=== PATIENT | male | born 1960 | race Asian ===

== ENCOUNTER → 2024-05-01 | Outpatient (CLI) | payer MEDICAID ==
[~2024-05-01] VITALS: Ht 172.7 cm; Wt 93.0 kg
== END | disposition home or self-care (01) ==
LOC: Rad HDHVI 08:15
PROVIDERS: ATTEND Internal Medicine Cardiovascular Disease
DX: I25.10 Atherosclerotic heart disease of native coronary artery without angina pectoris (principal); I49.3 Ventricular premature depolarization; R00.0 Tachycardia, unspecified; R53.83 Other fatigue; I25.2 Old myocardial infarction; E78.5 Hyperlipidemia, unspecified; E11.9 Type 2 diabetes mellitus without complications
CPT/HCPCS: 78452; 93017; 96374; A9500

== ENCOUNTER → 2024-05-03 | Outpatient (CLI) | payer MEDICAID | END | disposition home or self-care (01) | LOC: Rad HDHVI 07:55 | PROVIDERS: ATTEND Internal Medicine Cardiovascular Disease | DX: I25.2 Old myocardial infarction (principal) | CPT/HCPCS: 93880 ==

== ENCOUNTER → 2024-09-11 | Outpatient (CLI) | payer MEDICAID ==
[~2024-09-11] MED LIST: ASPI-543 PO; PIOG1TAB51 PO; POM PO; ROSU20TA14 PO; SEMA3TAB2 PO
[2024-09-11 09:15] VITALS: BP 151/71; PULSE 72; RESP 18; O2SAT 100
[2024-09-11 09:25] VITALS: BP 144/67; PULSE 69; RESP 18; O2SAT 100
--- NOTE | 2024-09-11 14:04 | DVH ---
Chest x-ray Technique: PA and lateral views CLINICAL INDICATION: Shortness of breath FINDINGS: Heart size is normal. Aorta tortuous. No infiltrates or effusions. Degenerative changes in the spine. IMPRESSION: 1. No acute cardiopulmonary pathology
== END | disposition home or self-care (01) ==
LOC: Rad HDHVI 09:00
PROVIDERS: ATTEND Internal Medicine Cardiovascular Disease
DX: Z01.818 Encounter for other preprocedural examination (principal); R06.02 Shortness of breath; R94.39 Abnormal result of other cardiovascular function study; R94.31 Abnormal electrocardiogram [ECG] [EKG]; Q25.46 Tortuous aortic arch; M47.814 Spondylosis without myelopathy or radiculopathy, thoracic region; R07.89 Other chest pain
CPT/HCPCS: 71046; 93005; G0463

== ENCOUNTER 2024-09-14 06:31 | Day surgery (SDC) | payer MEDICAID ==
[2024-09-11 11:44] LABS: Basophils # (auto) 0 10 ^3/uL (0-0.2); Basophils % (auto) 0.3 % (0.0-2.0); Eosinophils # (auto) 0.1 10 ^3/uL (0-0.8); Eosinophils % (auto) 2.7 % (0.0-7.0); Hematocrit 37.6 % (41.0-53.0); Hemoglobin 12.4 g/dL (13.5-17.5); Lymphocytes # (auto) 1.1 10 ^3/uL (0.4-5.4); Lymphocytes % (auto) 35.9 % (10.0-50.0); Mean Corpuscular Hemoglobin 28.3 pg (28.0-32.0); Mean Corpuscular Hgb Conc. 33.1 g/dL (32.0-36.0); Mean Corpuscular Volume 85.4 fL (80.0-100.0); Monocytes # (auto) 0.4 10 ^3/uL (0-1.3); Monocytes % (auto) 15.2 % (0.0-12.0); Neutrophils # (auto) 1.3 10 ^3/uL (1.6-8.6); Neutrophils % (auto) 45.9 % (37.0-80.0); Nucleated Red Blood Cells % 0.2 %; Platelet Count (auto) 168 10^3/uL (140-450); Red Cell Distribution Width 16.3 % (11.8-14.3); White Blood Cell 2.9 10^3/uL (4.4-10.8)
[2024-09-11 11:50] LABS: Chloride 107 mmol/L (98-107); INR 1.05 (0.9-1.15); Partial Thromboplastin Time 27.5 SEC (24.5-34.5); Prothrombin Time 11.1 sec (9.3-11.8); Sodium 137 mmol/L (136-145)
[2024-09-11 11:51] LABS: Anion Gap 2 (5-15); Carbon Dioxide 28 mmol/L (20-31)
[2024-09-11 11:52] LABS: Calcium 9.9 mg/dL (8.7-10.4)
[2024-09-11 11:56] LABS: BUN/Creatinine Ratio 11.3 (10.0-20.0); Blood Urea Nitrogen 15 mg/dL (9-23)
[2024-09-11 11:57] LABS: Glucose 152 mg/dL (74-106); Potassium 5.5 mmol/L (3.5-5.1)
[~2024-09-14] VITALS: Ht 175.3 cm; Wt 79.8 kg
[2024-09-14] VITALS (7 sets, daily range): BP systolic 120–137; BP diastolic 66–73; PULSE 62–68; RESP 12–14; O2SAT 98–99
[~2024-09-14 06:31] MED LIST changes: +CARV6.2551 PO; +MELO15TA29 PO; +SITA1TAB PO
[2024-09-14] MEDS ORDERED: HEPARIN SODIUM (PORCINE) 5000 UNITS/ML 1ML VIAL ONE (09:10)
[2024-09-14] MEDS ORDERED: ANGIOMAX 250 MG VIAL IV ONE (09:10)
[2024-09-14] MEDS ORDERED: VERAPAMIL 2.5MG/ML INJ 2ML VIAL IV ONE (09:10)
[2024-09-14] MEDS ORDERED: fentaNYL CITRATE 100 MCG/2 ML VL ONE (09:10)
[2024-09-14] MEDS ORDERED: SODIUM CHL 0.9% 50 ML ONE (09:11)
[2024-09-14] MEDS ORDERED: LIDOCAINE 2%HCL (LOCAL ANESTH.) INJ 20ML MDV ONE (09:11)
[2024-09-14] MEDS ORDERED: MIDAZOLAM HCL 2MG/2ML 2ml VIAL (1mg/ml) ONE (09:11)
[2024-09-14] MEDS ORDERED: IOHEXOL 350 MG/ML 100ML IJ ONE (09:42)
[2024-09-14] MEDS ORDERED: NITROGLYCERIN 0.4MG/DOSE SPRAY 4.9GM ONE (09:45)
[2024-09-14] MEDS ORDERED: IODIXANOL 320MG/ML 100ML BTL IV ONE (10:06)
[2024-09-14] MEDS ORDERED: CLOPIDOGREL BISULFATE 75 MG TAB ONE (10:19)
--- NOTE | 2024-09-14 11:36 | DVHOP ---
DATE OF SURGERY: 09/14/2024 PROCEDURES PERFORMED: * Selective left and right coronary angiography. * Angioplasty with atherectomy of the first diagonal. * Angioplasty with stent placement of the first diagonal with a 2.5 x 15 mm [place] Starbuck stent of the ostial first diagonal. * Angioplasty of the RCA, which is 100% total occlusion with left to right collaterals. * Ventriculogram. * Right iliac angiography. * Conscious sedation. DESCRIPTION OF PROCEDURE: The patient was prepped and draped in a sterile condition. 1% Xylocaine used to anesthetize the right groin. We attempted to cannulate the right radial artery, but because of extensive spasm, we were not able to cannulate the right radial artery. Then, the right femoral artery was cannulated using a Seldinger technique. A 6-Chilean sheath was in the right femoral artery. Using 6-Chilean JL4 catheter and 6-Chilean JR4 catheter, selective left and right coronary angiographies were performed. Using 6-Chilean pigtail catheter, ventriculogram was done. Following the angiography, a 6-Chilean diagnostic system was exchanged for a 6-Chilean interventional system. Using 6-Chilean JR4 guide catheter, the RCA was cannulated. Multiple wires were attempted, using a ChoICE PT extra support wire, ProVia 6 wire, but this was a subtotal occlusion. The patient had angioplasty with stent placement of the RCA in 1997. It appears essentially completely occluded with heavy calcification throughout with left to left, left to right and right to right collaterals to conus branch collateralization. The patient's left main was patent. Then, a 6-Chilean XB 3.5 catheter was used to cannulate the left main. Using a ChoICE PT extra support wire, the diagonal lesion was then crossed. It was then balloon angioplastied using a 2.0 x 20 mm Euphora balloon. Following the dilatation, a 2.5 x 12 mm shockwave balloon was used to angioplasty the ostium of the diagonal. Following that, a 2.5 x 15 mm [place] Starbuck stent was then deployed across the ostium of the first diagonal at 16 atmospheres. There were no complications. The patient tolerated the procedure well. RESULTS: * Left main patent. * Left anterior descending artery, mild diffuse disease without any flow restrictive lesion. * Circumflex, mild diffuse disease without any flow restrictive lesion. * First diagonal of the LAD had a 99% narrowing, status post thrombectomy with shockwave treatment and angioplasty with stent placement with a 2.5 x 15 mm [place] Starbuck stent with less than 10% residual stenosis. * Right coronary artery was totally occluded. Attempted angioplasty was not successful. The patient has left to left, left to right and right to right collateral circulation. * Left ventricular ejection fraction shows mild global hypokinesis with an estimated EF around 40%-45% with an LVEDP of 15-18 mmHg with no gradient across the aortic valve. Marcos Rudd MD SA/NOAH/JORDAN TID: [id number] RECEIPT: [id number]
--- NOTE | 2024-09-14 12:36 | DVHHP ---
ADMIT DATE: 09/14/2024 HISTORY OF PRESENT ILLNESS: The patient is 64 years old, history of hypertension, hyperlipidemia, history of myocardial infarction in 1997, presented with inferior wall FL. The patient underwent emergent angioplasty with stent placement of the proximal right coronary artery. There is strong family history for coronary artery disease. Grandmother had coronary artery disease. History of tobacco use, but discontinued smoking in 1997. History of diabetes. CURRENT MEDICATIONS: * Insulin. * Coreg. * Aspirin. * Rosuvastatin. He also has symptoms of sciatica. Mild kidney insufficiency, creatinine of 1.33 and the patient's potassium is also elevated at 5.0. He denies any cardiac arrest. No history of CVA. No history of TIA. No seizure disorder. No history of melena, hematochezia, hematemesis, hemoptysis. No hematuria. No history of bladder disease. No history of kidney disease. No history of any inflammatory bowel disease, diverticulitis or any history of irritable bowel syndrome. No lung disease such as COPD, emphysema or asthma. He has hyperlipidemia, however. Denies any history of rheumatologic disorders. PHYSICAL EXAMINATION: VITAL SIGNS: Blood pressure is 148/70, pulse of 70, O2 saturation 98% on room air. HEENT: Pupils are reactive. Funduscopic exam is benign. Sclerae anicteric. Oral mucosa moist. Posterior pharynx without any exudate. No JVD appreciated. Carotid pulses are 2+ symmetrical, normal upstroke and contour. No cervical adenopathy, no supraclavicular adenopathy. PULMONARY: Clear to auscultation. CARDIOVASCULAR: Regular rate, without S3, without S4. PMI is not displaced. ABDOMEN: Soft, nontender, normal bowel sounds. SKIN: Unremarkable. EXTREMITIES: 2+ pulses. NEUROLOGIC: The patient is intact. DIAGNOSTIC DATA: EKG does not show any acute changes. ASSESSMENT AND PLAN: Thus, the patient with inferior wall myocardial infarction in the past and angioplasty, stent placement, now with diminished left ventricular ejection fraction and inferior wall reversibility and because of above presentation, the patient is to undergo coronary angiography. Further recommendations after the angiogram. Marcos Rudd MD SA/NOAH TID: [id number] RECEIPT: [id number]
--- NOTE | 2024-09-14 12:37 | DVHDS ---
DATE OF DISCHARGE: 09/14/2024 DISCHARGE DIAGNOSES: The patient underwent angioplasty with stent placement of the first diagonal with thrombectomy as well, occluded RCA with bridging collaterals from the left as well as from the right. The patient at this time, clinically stable. May be discharged home on dual antiplatelet therapy. Follow up with me in 1 week. Stable at the time of discharge. DISPOSITION: Home. ACTIVITY: As instructed. DIET: Will be 2 gram sodium diet. The patient will be on dual antiplatelet therapy as stated above. Plavix 75 mg p.o. daily, with aspirin. Marcos Rudd MD SA/NOAH TID: [id number] RECEIPT: [id number]
[2024-09-14] MEDS ORDERED: CLOP75TA70 PO (13:34)
== END 2024-09-14 13:05 | disposition home or self-care (01) ==
LOC: CATH 06:31
PROVIDERS: ATTEND Internal Medicine Cardiovascular Disease
DX: I25.10 Atherosclerotic heart disease of native coronary artery without angina pectoris (principal); R06.02 Shortness of breath; I25.84 Coronary atherosclerosis due to calcified coronary lesion; I25.82 Chronic total occlusion of coronary artery; E11.9 Type 2 diabetes mellitus without complications; E78.5 Hyperlipidemia, unspecified; I10 Essential (primary) hypertension; I25.2 Old myocardial infarction; Z82.49 Family history of ischemic heart disease and other diseases of the circulatory system; Z87.891 Personal history of nicotine dependence; Z95.5 Presence of coronary angioplasty implant and graft
CPT/HCPCS: 36415; 80048; 84132; 85025; 85610; 85730; 92972; 93458; C1725; C1760; C1761; C1769; C1874; C1887; C1894; C9600; J0583; J1644; J2250; J3010; J7030; Q9967; 92920; 99152; 99153

== ENCOUNTER 2024-09-19 14:05 | Inpatient (IN) | payer MEDICAID ==
[~2024-09-19] VITALS: Ht 175.3 cm; Wt 83.9 kg
[~2024-09-19 14:05] MED LIST changes: +CLOP75TA70 PO
--- NOTE | 2024-09-19 14:18 | ED.PDOC ---
General HPI Comments 64 year old male MIKE presents to the ED with chief complaint of testicular swelling. Patient's son reports patient had an angiogram performed through the right groin on and had a stent placed by Dr. Rodríguez. Son relays that the patient had no issues until this morning when he began to notice increasing swelling, pain, and bluish discoloration to his testicles. EMS notes that they provided the patient 100mcg of Fentanyl for pain relief. Patient denies any dysuria, hematuria, fever, chills, or abdominal pain. Time Seen by MD: 14:14 Reviewed notes: Nurses Notes, Payroll Accounting Clerk Notes, Medications, Allergies Allergies: Coded Allergies: NO KNOWN ALLERGIES (Unverified , 05/01/24) Home Meds Reported Medications Aspirin (Aspir-Low) 81 Mg Tab, 81 MG PO DAILY, MG 09/11/24 Patients Own Medication (PATIENTS OWN MEDICATION) ., PO DAILY for JANUMENT/ 50/500MG PTS OWN MED-OBTAIN FROM PT AND SEND TO RX DRUG: FREQ: RX# EXP: DATE DISP: TECH: H: 09/11/24 Semaglutide (Rybelsus) 3 Mg Tab, 3 MG PO DAILY for DIABETES, TAB 09/11/24 Rosuvastatin Calcium (Crestor) 20 Mg Tab, 1 TAB PO DAILY, #30 TAB 5 Refills 09/11/24 Pioglitazone Hydrochloride (PIOGLITAZONE HCL) 45 Mg Tab, 45 MG PO DAILY for DIABETES, TAB 09/11/24 Information Source: Patient, Relative (Son), Emergency Med Personnel Mode of Arrival: EMS Severity: Moderate Timing: Hours Duration: Since onset Prehospital treatment: Pain Meds (100mcg of Fentanyl) Onset: Spontaneous History of: Recent post-op (Angiogram) Location: None Location male: R Scrotum, L Scrotum Penile discharge: None Modifying factors: None Past Medical History PAST MEDICAL HISTORY: DM, High Lipids, HTN, MS Surgical History: PTCA Surgical History (Other): Angiogram through Rt groin Family History Family History: Reviewed,noncontributory to illness, Family hx of DM, Family hx of Cancer, Family hx of heart campos Social History Smoker: Quit Greater Than 1 Year, Cigarettes Alcohol: Denies ETOH Use Drugs: Denies Drug Use Lives In: Home Constitutional: denies: chills, diaphoresis, fatigue, fever, malaise, sweats, weakness, others EENTM: denies: blurred vision, double vision, ear bleeding, ear discharge, ear drainage, ear pain, ear ringing, eye pain, eye redness, hearing loss, mouth pain, mouth swelling, nasal discharge, nose bleeding, nose congestion, nose pain, photophobia, tearing, throat pain, throat swelling, voice changes, others Respiratory: denies: cough, hemoptysis, orthopnea, SOB at rest, shortness of breath, SOB with excertion, stridor, wheezing, others Cardiovascular: denies: chest pain, dizzy spells, diaphoresis, Dyspnea on exertion, edema, irregular heart beat, left arm pain, lightheadedness, palpitations, PND, syncope, others Gastrointestinal: denies: abdomen distended, abdominal pain, blood streaked bowels, constipated, diarrhea, dysphagia, difficulty swallowing, hematemesis, melena, nausea, poor appetite, poor fluid intake, rectal bleeding, rectal pain, vomiting, others Genitourinary: reports: testicle pain, testicle swelling, others (Testicle discoloration); denies: burning, dysuria, flank pain, frequency, hematuria, incontinence, penile discharge, penile sore, pain, urgency Neurological: denies: dizziness, fainting, headache, left sided numbness, left sided weakness, numbness, paresthesia, pre-existing deficit, right sided numbness, right sided weakness, seizure, speech problems, tingling, tremors, weakness, others Musculoskeletal: denies: back pain, gout, joint pain, joint swelling, muscle pain, muscle stiffness, neck pain, others Integumetry: denies: bruises, change in color, change in hair/nails, dryness, laceration, lesions, lumps, rash, wounds, others Allergic/Immunocompromised: denies: Difficulty Healing, Frequent Infections, Hives, Itching, others Hematologic/Lymphatic: denies: anemia, blood clots, easy bleeding, easy bruising, swollen glands, others Endocrine: denies: excessive hunger, excessive sweating, excessive thirst, excessive urination, flushing, intolerance to cold, intolerance to heat, unexplained weight gain, unexplained weight loss, others Psychiatric: denies: anxiety, bipolar disorder, depression, hopeless, panic disorder, schizophrenia, sleepless, suicidal, others All Other Systems: Reviewed and Negative Physical Exam General Appearance: Moderate Distress HEENT: Normal ENT Inspection, Pharynx Normal, TMs Normal Neck: Full Range of Motion, Non-Tender, Normal, Normal Inspection Respiratory: Chest Non-Tender, Lungs Clear, No Accessory Muscle Use, No Respiratory Distress, Normal Breath Sounds Cardiovascular: No Edema, No JVD, No Murmur, No Gallop, Normal Peripheral Pulses, Regular Rate/Rhythm Breast Exam: Deferred Gastrointestinal: No Organomegaly, Non Tender, No Pulsatile Mass, Normal Bowel Sounds, Soft Genitalia: Other (Severely swollen scrotal area as well as the right inguinal area. There seems to be a hematoma) Pelvic: Deferred Rectal: Deferred Extremities: No calf tenderness, Normal capillary refill, Normal inspection, Normal range of motion, Non-tender, No pedal edema Musculoskeletal : Apperance: Normal Neurologic: Alert, kitchen porter II-XII nml as Tested, No Motor Deficits, Normal Affect, Normal Mood, No Sensory Deficits Cerebellar Function: Normal Reflexes: Normal Skin: Dry, Normal Color, Warm Lymphatic: No Adenopathy Was a procedure done? Was a procedure done?: No Differential Diagnosis Kidney stone (Female): Strain, Other (Hematoma) X-Ray, Labs, Meds, VS Vital Signs Date Time Temp Pulse Resp B/P (MAP) Pulse Ox O2 Delivery O2 Flow Rate FiO2 09/19/24 14:27 98.8 80 18 166/89 (114) 99 Lab Test 09/19/24 14:36 Range/Units White Blood Count 5.7 4.4-10.8 10^3/uL Red Blood Count 2.86 L 4.5-5.90 10^6/uL Hemoglobin 8.0 L 13.5-17.5 g/dL Hematocrit 24.6 L 41.0-53.0 % Mean Corpuscular Volume 86.0 80.0-100.0 fL Mean Corpuscular Hemoglobin 28.1 28.0-32.0 pg Mean Corpuscular Hemoglobin Concent 32.6 32.0-36.0 g/dL Red Cell Distribution Width 16.1 H 11.8-14.3 % Platelet Count 186 140-450 10^3/uL Mean Platelet Volume 7.5 6.9-10.8 fL Neutrophils (%) (Auto) 68.9 37.0-80.0 % Lymphocytes (%) (Auto) 18.8 10.0-50.0 % Monocytes (%) (Auto) 11.1 0.0-12.0 % Eosinophils (%) (Auto) 0.8 0.0-7.0 % Basophils (%) (Auto) 0.4 0.0-2.0 % Neutrophils # (Auto) 3.9 1.6-8.6 10 ^3/uL Lymphocytes # (Auto) 1.1 0.4-5.4 10 ^3/uL Monocytes # (Auto) 0.6 0-1.3 10 ^3/uL Eosinophils # (Auto) 0 0-0.8 10 ^3/uL Basophils # (Auto) 0 0-0.2 10 ^3/uL Nucleated Red Blood Cells 0.0 % Prothrombin Time 11.9 H 9.3-11.8 sec Prothrombin Time INR 1.13 0.9-1.15 Activated Partial Thromboplast Time 23.9 L 24.5-34.5 SEC Sodium Level 132 L 136-145 mmol/L Potassium Level 5.2 H 3.5-5.1 mmol/L Chloride Level 101 98-107 mmol/L Carbon Dioxide Level 26 20-31 mmol/L Anion Gap 5 5-15 Blood Urea Nitrogen 18 9-23 mg/dL Creatinine 1.28 0.700-1.30 mg/dL Glomerular Filtration Rate Calc 62 >90 mL/min BUN/Creatinine Ratio 14.1 10.0-20.0 Serum Glucose 388 H 74-106 mg/dL Calcium Level 9.1 8.7-10.4 mg/dL The patient's CBC shows a hemoglobin of 8.0 and hematocrit of 24.6 The patient's platelets are within normal limits The INR is 1.13 The chemistry panel shows hyperkalemia at 5.2 At this time, the patient was being admitted to the hospitalist An ultrasound was done of the right lower extremity which shows: IMPRESSION: 1. No hemodynamically significant stenosis based on peak systolic velocity criteria. The CT scan of the abdomen and pelvis was done and shows: IMPRESSION: 1. Limited by motion. Diffuse stranding in the anterior pelvic wall and particularly in the right inguinal canal. Suspect an acute process. Possibly an infection such as cellulitis. Clinical correlation and continued follow-up is recommended. Consider further evaluation with ultrasound of the right scrotum and inguinal region. We are now ordering an ultrasound of the right testicular region The patient is being admitted at this time. Images Reviewed?: Images reviewed and evaluated by me Time of 1ST Reevaluation: 18:00 Reevaluation 1ST: Unchanged Patient Education/Counseling: Diagnosis, Treatment, Prognosis Family Education/Counseling: Diagnosis, Treatment, Prognosis Departure 1 Departure Time of Disposition: 16:46 Impression: Primary Impression: Status post coronary angiogram Additional Impression: Hematoma Disposition: 09 ADMITTED INPATIENT Admit to: Tele Condition: Fair Critical Care Note Critical Care Time?: Yes (35 min-critical care time only) Stability Stability form required: Yes Unstable for transfer: Telemetry monitoring (Telemetry monitoring required), ED Physician Assesment (Clinical assesment) Heart Score Heart Score: Heart Score Response (Comments) Value History N/A 0 EKG N/A 0 Age N/A 0 Risk Factors N/A 0 Troponin N/A 0 Total 0 I personally scribed for KEKE SCOTT MD ([email or web address]) on 09/19/24 at 14:18. Electronically submitted by Jason England ([email or web address]). I personally scribed for KEKE SCOTT MD ([email or web address]) on 09/19/24 at 14:19. Electronically submitted by Jason England ([email or web address]). KEKE SCOTT MD Sep 19, 2024 14:18
[2024-09-19 14:58] LABS: Basophils # (auto) 0 10 ^3/uL (0-0.2); Hematocrit 24.6 % (41.0-53.0); White Blood Cell 5.7 10^3/uL (4.4-10.8)
[2024-09-19 14:59] LABS: Basophils % (auto) 0.4 % (0.0-2.0); Eosinophils # (auto) 0 10 ^3/uL (0-0.8); Eosinophils % (auto) 0.8 % (0.0-7.0); Lymphocytes # (auto) 1.1 10 ^3/uL (0.4-5.4); Lymphocytes % (auto) 18.8 % (10.0-50.0); Mean Corpuscular Hemoglobin 28.1 pg (28.0-32.0); Mean Corpuscular Hgb Conc. 32.6 g/dL (32.0-36.0); Monocytes # (auto) 0.6 10 ^3/uL (0-1.3); Monocytes % (auto) 11.1 % (0.0-12.0); Neutrophils # (auto) 3.9 10 ^3/uL (1.6-8.6); Neutrophils % (auto) 68.9 % (37.0-80.0); Platelet Count (auto) 186 10^3/uL (140-450); Red Blood Cells 2.86 10^6/uL (4.5-5.90); Red Cell Distribution Width 16.1 % (11.8-14.3)
[2024-09-19 15:11] LABS: Chloride 101 mmol/L (98-107)
[2024-09-19 15:12] LABS: INR 1.13 (0.9-1.15); Partial Thromboplastin Time 23.9 SEC (24.5-34.5); Prothrombin Time 11.9 sec (9.3-11.8)
[2024-09-19 15:13] LABS: Anion Gap 5 (5-15); Calcium 9.1 mg/dL (8.7-10.4); Carbon Dioxide 26 mmol/L (20-31)
[2024-09-19 15:18] LABS: BUN/Creatinine Ratio 14.1 (10.0-20.0); Blood Urea Nitrogen 18 mg/dL (9-23)
[2024-09-19 15:24] LABS: Glucose 388 mg/dL (74-106); Potassium 5.2 mmol/L (3.5-5.1); Sodium 132 mmol/L (136-145)
--- NOTE | 2024-09-19 15:34 | DVH ---
Right Lower Extremity Arterial Duplex Clinical History: Status post angiogram to the right groin Comparison: None Technique: Duplex Doppler evaluation including color Doppler and spectral/pulsed waveform analysis of the lower extremity arteries was performed. 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 IMPRESSION: 1. No hemodynamically significant stenosis based on peak systolic velocity criteria. REFERENCE VALUES, [facility]) vascular Imaging Lab Criteria: Peak systolic velocity ranges (in cm/sec) are as follows: <150 cm/s - <20 % stenosis 150-200 cm/s - 20-49% stenosis 200-300 cm/s - 50-75% stenosis >300 cm/s -> 75% stenosis
--- NOTE | 2024-09-19 16:27 | DVH ---
Exam: CT CT AB PEL WO CON-NO ORAL OR IV History: pain Comparison Study: None Technique: Multidetector spiral CT of the abdomen and pelvis was performed from lung bases to pubic symphysis. Imaging was performed without IV contrast. Axial, coronal and sagittal multiplanar reform ats were obtained from the axial data set by the technologist. Radiation dose : Abdomen/Pelvis: CTDIvol 9 mGy, DLP 501 mGy*cm. Findings: Evaluation of solid organs is limited due to lack of intravenous contrast use. Lung Bases: No acute or significant lung base finding. Normal heart size. No pleural or pericardial effusion. Liver: The liver is normal in size. No focal lesions. Gallbladder and biliary Tree: Unremarkable Spleen: Unremarkable Pancreas: The pancreas is grossly normal in appearance. Adrenal Glands: Unremarkable Kidneys: Left renal cyst. No hydronephrosis or nephrolithiasis. Bladder: Grossly unremarkable for degree of distention. Bowel: The stomach is grossly normal in appearance. Small bowel and colon are normal in caliber and d istribution. Normal appendix is visualized in the right lower quadrant without findings of appendici tis. Ascites: Absent Lymphadenopathy: No mesenteric, retroperitoneal or periportal lymphadenopathy. Abdominal wall and Mesentery: Diffuse stranding in the anterior pelvic wall and right inguinal canal. Vasculature: The visualized abdominal aorta is normal in size and caliber. There is extensive athero sclerotic calcification of the aorta and its branches. Evaluation of abdominal and pelvic vessels is limited due to lack of intravenous contrast. Pelvic Organs: Unremarkable Musculoskeletal: No aggressive focal bony lesions, acute fractures or dislocation. IMPRESSION: 1. Limited by motion. Diffuse stranding in the anterior pelvic wall and particularly in the right ing uinal canal. Suspect an acute process. Possibly an infection such as cellulitis. Clinical correlatio n and continued follow-up is recommended. Consider further evaluation with ultrasound of the right s crotum and inguinal region. Radiation optimization: All CT scans at this facility use at least one of these dose optimization branden hniques: Automated exposure control mA and/or kV adjustment per patient size (includes targeted exams where dose is matched to clinical indication) or iterative reconstruction. HS:Y
--- NOTE | 2024-09-19 19:19 | DVH ---
US TESTICULAR ULTRASOUND HISTORY: pain and swelling COMPARISON: None FINDINGS: Technique: Transverse and longitudinal grayscale and Doppler sonographic images were obtained of the scrotum/testicles. Right testis: Right testicle measures 4.2 x 2.6 x 2.7 cm. Small right-sided hydrocele. Normal blood flow to the rig ht testicle the epididymis measures 1.6 cm in demonstrates no abnormalities. Left testis: The left testicle measures 4.4 x 3.0 x 2.5 cm. Small left-sided hydrocele. Normal blood flow to the left testicle. The epididymis measures 1.7 cm. There is a left epididymal cyst measuring 1 cm. There is diffuse scrotal wall edema. Right groin vascular structure, likely representing the common femoral vein demonstrating mixture of flow within the vessel concerning for pseudoaneurysm IMPRESSION: Small bilateral hydroceles with scrotal wall edema. 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
--- NOTE | 2024-09-19 22:44 | DVHHPRES ---
History of Present Illness Resident Creating Document: BALTAZAR LEONARD RESIDENT History of Present Illness Patient is a 64-year-old male with a past medical history of type 2 diabetes mellitus and hypertension came to the ED with a chief complaint of right groin and scrotal swelling. Patient reported that he underwent a left heart catheterization with stent on with Dr. Rodríguez following which he was discharged but he started to feel mild discomfort in the right groin at the site of access. He was able to walk and function but noticed that there was some black discoloration around the site which was slowly progressing down to the right side of the scrotum. Patient reported that his discomfort was increasing and in the morning today the pain got worse and the swelling with the scrotum got worse with complete black discoloration of the penis and the scrotum. Denies leg pain, numbness, decreased range of motion, bowel bladder dysfunction. Past medical history: Type 2 diabetes mellitus, hypertension, [place] in 1997 s/p PTCA Past surgical history: PTCA x2 Social history: Lives with family, denies smoking, alcohol, drug use Home medications: Rosuvastatin 20 mg, aspirin 81 mg, carvedilol 6.2 mg b.i.d., rybelsus 3mg qd, clopidogrel 75 mg q.d. Review of Systems Review of Systems Patient was seen and examined at bedside Alert and oriented to time, place and person Complains of scrotal pain 4/10 in intensity, scrotal swelling with black discoloration Reports that he has not been able to pass urine since came to the hospital. Denies shortness of breath, chest pain, palpitations Denies nausea, vomiting, diarrhea, abdominal pain, Allergies: Coded Allergies: NO KNOWN ALLERGIES (Unverified , 05/01/24) Exam Vital Signs Vital Signs Date Time Temp Pulse Resp B/P (MAP) Pulse Ox O2 Delivery O2 Flow Rate FiO2 09/19/24 20:00 83 15 134/62 (86) 100 09/19/24 19:30 Room Air* 0 21 09/19/24 19:00 98.1 98.1 Exam Physical Examination Gen - no pallor, no icterus, no cyanosis, no clubbing, no LAD, no pedal edema . Skin - Patients skin is warm and dry. HEENT - normocephalic, atraumatic, moist mucous membranes. Neck - full ROM, no LAD, no JVD Pulmonary - B/L vesicular breath sounds. no crackles , no wheezing, no stridor. cardiovascular - normal S1,S2 heard. no murmurs heard. peripheral pulses normal radial 2+, pedal 2+. GI - soft abdomen without tenderness to palpation. no hepatospleenomegaly. Bowel sounds normoactive - black discoloration and large swelling of the scrotum, groin ecchymosis Neurological - Patient is A/O X 3. Bilateral upper extremity strength 5/5, bilateral lower extremity strength 5/5, no facial droop, normal speech, no tremor, no sensory deficiets. Labs/Xrays Labs Test 09/19/24 14:36 Range/Units White Blood Count 5.7 4.4-10.8 10^3/uL Red Blood Count 2.86 L 4.5-5.90 10^6/uL Hemoglobin 8.0 L 13.5-17.5 g/dL Hematocrit 24.6 L 41.0-53.0 % Mean Corpuscular Volume 86.0 80.0-100.0 fL Mean Corpuscular Hemoglobin 28.1 28.0-32.0 pg Mean Corpuscular Hemoglobin Concent 32.6 32.0-36.0 g/dL Red Cell Distribution Width 16.1 H 11.8-14.3 % Platelet Count 186 140-450 10^3/uL Mean Platelet Volume 7.5 6.9-10.8 fL Neutrophils (%) (Auto) 68.9 37.0-80.0 % Lymphocytes (%) (Auto) 18.8 10.0-50.0 % Monocytes (%) (Auto) 11.1 0.0-12.0 % Eosinophils (%) (Auto) 0.8 0.0-7.0 % Basophils (%) (Auto) 0.4 0.0-2.0 % Neutrophils # (Auto) 3.9 1.6-8.6 10 ^3/uL Lymphocytes # (Auto) 1.1 0.4-5.4 10 ^3/uL Monocytes # (Auto) 0.6 0-1.3 10 ^3/uL Eosinophils # (Auto) 0 0-0.8 10 ^3/uL Basophils # (Auto) 0 0-0.2 10 ^3/uL Nucleated Red Blood Cells 0.0 % Prothrombin Time 11.9 H 9.3-11.8 sec Prothrombin Time INR 1.13 0.9-1.15 Activated Partial Thromboplast Time 23.9 L 24.5-34.5 SEC Sodium Level 132 L 136-145 mmol/L Potassium Level 5.2 H 3.5-5.1 mmol/L Chloride Level 101 98-107 mmol/L Carbon Dioxide Level 26 20-31 mmol/L Anion Gap 5 5-15 Blood Urea Nitrogen 18 9-23 mg/dL Creatinine 1.28 0.700-1.30 mg/dL Glomerular Filtration Rate Calc 62 >90 mL/min BUN/Creatinine Ratio 14.1 10.0-20.0 Serum Glucose 388 H 74-106 mg/dL Calcium Level 9.1 8.7-10.4 mg/dL Assessment/Plan Assessment/Plan Assessment and Plan # Right groin swelling # Scrotal swelling ? hydrocoele ?hematoma # ?pseudoaneurysm of Right common femoral artery # S/P left and right heart cath with 1 NICK - Testicular US shows Small bilateral hydroceles with scrotal wall edema. Incidental finding of possible pseudoaneurysm involving the right common femoral artery - Right extremity arterial duplex shows No hemodynamically significant stenosis - CT abdomen pelvis without contrast shows Diffuse stranding in the anterior pelvic wall and particularly in the right inguinal canal. Suspect an acute process - Hemoglobin at 8 - held aspirin and plavix - on atorvastatin 80mg hs - Cardiology consulted with # HFrEF, no exacerbation - ECHO from april 2024 shows LVEF 35% - on carvedilol 6.25mg bid # anemia ?blood loss - HB drop from 12.4 on 09/11 to 8 todaay - retic count - haptoglobin pending - iron panel pending # Uncontrolled T2DM with hyperglycemia - on moderate ISS - Hba1c pending Goals of care discussed with the patient and the son for over 27mins. Full code Plan discussed with Plan discussed with: Patient, Son My Orders Orders - BALTAZAR LEONARD RESIDENT Procedure Category Date Status Time Rt Low Ext Art Duplex US 09/19/24 Verified 22:39 *Cons[address] Dr. Rodríguez CONS 09/19/24 Verified [place] 22:39 Admit ADMIT 09/19/24 Verified 22:39 Morphine Sulfate PHA 09/19/24 Verified Injection 22:45 Nitroglycerin PHA 09/19/24 Verified Sublingual ([place]trostat 22:45 Hydrocodone-Acet PHA 09/19/24 Verified 5/325mg Tab ([place] 22:45 Date of Service: Sep 19, 2024 Billing Provider: JOSEMANUEL SHETH MD Common Visit Codes: [id number] INP/OBS CARE (HIGH) Secondary Visit Codes: [id number] CARE PLAN 30 MINUTES BALTAZAR LEONARD RESIDENT Sep 19, 2024 22:44 JOSEMANUEL SHETH MD Sep 20, 2024 09:26
[2024-09-19] MEDS ORDERED: NITROGLYCERIN 0.4 MG SL TAB SL PRN (22:45)
[2024-09-19] MEDS ORDERED: MORPHINE SULFATE INJ 2 MG/ml SYRG IV PRN (22:45)
[2024-09-19] MEDS ORDERED: HYDROcodone-ACET 5/325MG TAB PO PRN (22:45)
[2024-09-19] MEDS ORDERED: DEXTROSE (50%) 50ML SYRG IV PRN (23:30)
[2024-09-19] MEDS: ACCU-CHEK COMFORT CURVE STRIP VI SCH (23:50)
[2024-09-19] MEDS: InsuLIN REG 1unit/0.01ml Soln (100units/ml) SC SCH (23:54)
[2024-09-20] VITALS (18 sets, daily range): BP systolic 109–164; BP diastolic 42–81; PULSE 72–81; RESP 9–18; TEMP 97.4–98.5; O2SAT 94–100
[2024-09-20] MEDS ORDERED: InsuLIN REG 1unit/0.01ml Soln (100units/ml) IV ONE (04:15)
[2024-09-20] MEDS ORDERED: MORPHINE SULFATE INJ 2 MG/ml SYRG IV PRN (04:30)
[2024-09-20 06:40] LABS: Basophils # (auto) 0 10 ^3/uL (0-0.2); Eosinophils # (auto) 0 10 ^3/uL (0-0.8); Monocytes # (auto) 0.5 10 ^3/uL (0-1.3); Neutrophils # (auto) 1.6 10 ^3/uL (1.6-8.6); Nucleated Red Blood Cells % 0.1 %
[2024-09-20 06:42] LABS: Basophils % (auto) 0.4 % (0.0-2.0); Eosinophils % (auto) 0.7 % (0.0-7.0); Hematocrit 19.8 % (41.0-53.0); Lymphocytes % (auto) 31.7 % (10.0-50.0); Mean Corpuscular Hemoglobin 28.9 pg (28.0-32.0); Mean Corpuscular Hgb Conc. 34.3 g/dL (32.0-36.0); Mean Corpuscular Volume 84.4 fL (80.0-100.0); Monocytes % (auto) 15.4 % (0.0-12.0); Neutrophils % (auto) 51.8 % (37.0-80.0); Platelet Count (auto) 144 10^3/uL (140-450); Red Blood Cells 2.34 10^6/uL (4.5-5.90); Red Cell Distribution Width 16.2 % (11.8-14.3)
[2024-09-20 06:47] LABS: Albumin 3.7 g/dL (3.2-4.8); Alkaline Phosphatase 46 U/L (46-116); Anion Gap 6 (5-15); BUN/Creatinine Ratio 13.2 (10.0-20.0); Blood Urea Nitrogen 16 mg/dL (9-23); Calcium 9.4 mg/dL (8.7-10.4); Carbon Dioxide 26 mmol/L (20-31); Chloride 103 mmol/L (98-107); Cholesterol 77 mg/dL (< 200); LDL Cholesterol 36 mg/dL (< 100); Potassium 4.3 mmol/L (3.5-5.1); Triglycerides 120 mg/dL (< 150)
[2024-09-20 06:48] LABS: Bilirubin, Total 0.5 mg/dL (0.2-1.0); Total Protein 6.1 g/dL (5.7-8.2)
[2024-09-20 06:57] LABS: Alanine Aminotransferase < 9 U/L (7-40); Aspartate Aminotransferase 8 U/L (13-40); Glucose 167 mg/dL (74-106); HDL Cholesterol 22 mg/dL (40-59); Sodium 135 mmol/L (136-145)
[2024-09-20 07:19] LABS: Hemoglobin 6.8 g/dL (13.5-17.5)
[2024-09-20 08:49] LABS: Hematocrit 20.1 % (41.0-53.0)
[2024-09-20 09:14] LABS: Hemoglobin 6.7 g/dL (13.5-17.5)
[2024-09-20] MEDS: CARVEDILOL 3.125 MG TAB PO SCH ×2 (10:53→21:59)
--- NOTE | 2024-09-20 13:38 | DVHPN2 ---
Progress Note - Dictate Date Seen: Sep 20, 2024 Medical Necessity Reason Pt with a Central, PICC or Fol: No Subjective Pt presented with right groin hematoma with ecchymosis. Doppler consistent with pseudoaneurysms The patient is 64 years old, history of hypertension, hyperlipidemia, history of myocardial infarction in 1997, presented with inferior wall [place]. The patient underwent emergent angioplasty with stent placement of the proximal right coronary artery. There is strong family history for coronary artery disease. Grandmother had coronary artery disease. History of tobacco use, but discontinued smoking in 1997. History of diabetes. CURRENT MEDICATIONS: * Insulin. * Coreg. * Aspirin. * Rosuvastatin. He also has symptoms of sciatica. Mild kidney insufficiency, creatinine of 1.33 and the patient's potassium is also elevated at 5.0. He denies any cardiac arrest. No history of CVA. No history of TIA. No seizure disorder. No history of melena, hematochezia, hematemesis, hemoptysis. No hematuria. No history of bladder disease. No history of kidney disease. No history of any inflammatory bowel disease, diverticulitis or any history of irritable bowel syndrome. No lung disease such as COPD, emphysema or asthma. He has hyperlipidemia, however. Denies any history of rheumatologic disorders. vital signs Vital Sign Date Time Temp Pulse Resp B/P (MAP) Pulse Ox O2 Delivery O2 Flow Rate FiO2 09/20/24 12:35 98.5 73 10 113/42 98.5 09/20/24 09:00 100 09/20/24 07:50 Room Air* 0 21 medications Current Medications Medications Dose Ordered Sig/Salena Route Start Time Stop Time Status Last Admin Dose Admin Morphine Sulfate 2 mg Q30M PRN IV 09/19/24 22:45 Nitroglycerin 0.4 mg Q5MINP PRN SL 09/19/24 22:45 Acetaminophen/ Hydrocodone Bitart 1 tab Q6HPRN PRN PO 09/19/24 22:45 Diagnostic Test (Pha) 1 strip IQ4HR 09/20/24 00:00 09/20/24 12:27 1 STRIP Insulin Human Regular IQ4HR SC 09/20/24 00:00 09/20/24 12:40 3 UNITS Dextrose 50 ml UD PRN IV 09/19/24 23:30 Carvedilol 6.25 mg Q12HR PO 09/20/24 10:00 12/18/24 10:53 6.25 MG Morphine Sulfate 2 mg Q6HPRN PRN IV 09/20/24 04:30 Atorvastatin Calcium 80 mg HS PO 09/20/24 22:00 objective PHYSICAL EXAMINATION: VITAL SIGNS: Blood pressure is 148/70, pulse of 70, O2 saturation 98% on room air. HEENT: Pupils are reactive. Funduscopic exam is benign. Sclerae anicteric. Oral mucosa moist. Posterior pharynx without any exudate. No JVD appreciated. Carotid pulses are 2+ symmetrical, normal upstroke and contour. No cervical adenopathy, no supraclavicular adenopathy. PULMONARY: Clear to auscultation. CARDIOVASCULAR: Regular rate, without S3, without S4. PMI is not displaced. ABDOMEN: Soft, nontender, normal bowel sounds. SKIN: Unremarkable. EXTREMITIES: 2+ pulses. NEUROLOGIC: The patient is intact. DIAGNOSTIC DATA: EKG does not show any acute changes. laboratory and microbiology Laboratory Tests 09/20/24 08:26 09/20/24 05:16 Test 09/20/24 05:16 Range/Units Serum Glucose 167 #H 74-106 mg/dL Problem List ANEMIA PSEUDOANEURYSM CAD S/P PTCA STENT Assessment/Plan TRANSFUSE TAMPONADE THE PSEUDOANEURYSM UNDER ULTRASOUND GUIDANCE AND THROMBIN Plan discussed with: Patient Critical Care Time(min): 35 CC Plasma Assessment Blood Product Administration S: [id number] AGGIE PENNINGTON MD Sep 20, 2024 13:38
[2024-09-20] MEDS: LIDOCAINE 2%HCL (LOCAL ANESTH.) INJ 20ML MDV ONE (14:26)
[2024-09-20] MEDS: HYDROmorphone HCL 2 MG/ML VL/or syr IV ONE (14:35)
[2024-09-20] MEDS: HYDROmorphone HCL 2 MG/ML VL/or syr ONE (15:00)
--- NOTE | 2024-09-20 15:12 | DVHOP ---
DATE OF SURGERY: 09/20/2024 INDICATIONS: The patient who is 64 years old with coronary artery disease, underwent successful angioplasty with stent placement of the diagonal artery. The patient approximately 6 days post procedure, suddenly noticed a large hematoma and scrotal extension as well and the patient was brought to the Emergency Room. The patient had subacute development of pseudoaneurysm. Under ultrasound guidance, now to close the pseudoaneurysm with thrombin injection. PROCEDURES PERFORMED: * Thrombin injection. * Ultrasound guidance with occlusion of the neck of the pseudoaneurysm. * Conscious sedation. DESCRIPTION OF PROCEDURE: The patient was prepped and draped in a sterile condition. Ultrasound was used to locate the neck of the pseudoaneurysm. Pressure was applied at the neck of the pseudoaneurysm. With ultrasound guidance, thrombin was injected into the hematoma. Total of 30 minutes of pressure was applied. Reimaging showed complete closure of the neck. No evidence for any persistence of aneurysm further. The patient was comfortable. He is receiving 2 units of PRBC since he has lost significant amount of blood. The patient has scrotal swelling consistent with hematoma, but that will resolve over time with heat. Antibiotics will be given as prophylaxis as well. CONCLUSION: The patient with development of pseudoaneurysm six days post surgery. The patient now underwent ultrasound-guided occlusion of the pseudoaneurysm with thrombin injection. Marcos Rudd MD SA/ANGELA TID: [id number] RECEIPT: [id number]
[2024-09-20] MEDS ORDERED: DEXTROSE (50%) 50ML SYRG IV PRN (15:45)
--- NOTE | 2024-09-20 15:49 | DVHPN2 ---
Progress Note Date Seen: Sep 20, 2024 Medical Necessity Reason Pt with a Central, PICC or Fol: No Subjective Patient reports: No new complaints Review of Systems: HEENT:Normal, CVS:Normal, RESPIRATORY:Normal, GI:Normal, :Normal, MSK:Normal, NEURO:Normal Objective vital signs Vital Sign Date Time Temp Pulse Resp B/P (MAP) Pulse Ox O2 Delivery O2 Flow Rate FiO2 09/20/24 13:00 98.5 76 14 109/52 (71) 100 98.5 09/20/24 07:50 Room Air* 0 21 medications Current Medications Medications Dose Ordered Sig/Salena Route Start Time Stop Time Status Last Admin Dose Admin Morphine Sulfate 2 mg Q30M PRN IV 09/19/24 22:45 Nitroglycerin 0.4 mg Q5MINP PRN SL 09/19/24 22:45 Acetaminophen/ Hydrocodone Bitart 1 tab Q6HPRN PRN PO 09/19/24 22:45 Diagnostic Test (Pha) 1 strip IQ4HR 09/20/24 00:00 09/20/24 12:27 1 STRIP Insulin Human Regular IQ4HR SC 09/20/24 00:00 09/20/24 12:40 3 UNITS Dextrose 50 ml UD PRN IV 09/19/24 23:30 Carvedilol 6.25 mg Q12HR PO 09/20/24 10:00 09/20/24 10:53 6.25 MG Morphine Sulfate 2 mg Q6HPRN PRN IV 09/20/24 04:30 Atorvastatin Calcium 80 mg HS PO 09/20/24 22:00 Examination: GENERAL:Normal, HEENT:Normal, NECK:Normal, LUNGS:Normal, CVS:Normal, ABDOMEN:Normal, MSK:Normal, MSK:Abnormal (right groin/testicular bruising), SKIN:Normal, NEURO:Normal, :Normal laboratory and microbiology Laboratory Tests 09/20/24 08:26 09/20/24 05:16 Test 09/20/24 05:16 Range/Units Serum Glucose 167 #H 74-106 mg/dL Problem List/Assessment/Plan Problem List/Assessment/Plan #1 right groin hematoma with pseudoaneurysm: dw dr Rodríguez, thrombin injection today #2 anemia s/p transfusion #3 cad s/p stent #4 dm: ssi #5 htn #6 hyperlipidemia advance care planning- full code- time spent 19 mins Plan discussed with: Patient, Son My Orders My Orders Orders - CLARA SHARIF MD Procedure Category Date Status Time Carvedilol Tablet PHA 09/20/24 Verified (Coreg Tablet) 22:00 Glucose Blood PHA 09/20/24 Verified (Accu-Chek Comfort 17:00 Bedtime Insulin Scale PHA 09/20/24 Verified 22:00 Moderate Insulin Ss PHA 09/20/24 Verified 17:00 Dextrose 50% Syringe PHA 09/20/24 Verified 15:45 Urinalysis LAB 09/20/24 Uncollected 15:44 Consistent DIET 09/20/24 Verified Carb(Ccho)Diabetes Dinner Complete Blood Count LAB 09/21/24 Verified 06:00 Comprehensive LAB 09/21/24 Verified Metabolic Panel 06:00 Hemoglobin A1c LAB 09/21/24 Verified 06:00 Date of Service: Sep 20, 2024 Billing Provider: CLARA SHARIF MD Common Visit Codes: [id number] INP/OBS CARE(HIGH) Secondary Visit Codes: [id number] CARE PLAN 30 MINUTES CC Plasma Assessment Blood Product Administration S: [id number] CLARA SHARIF MD Sep 20, 2024 15:49
[2024-09-20] MEDS: ACCU-CHEK COMFORT CURVE STRIP VI SCH (17:04)
[2024-09-20] MEDS: InsuLIN REG 1unit/0.01ml Soln (100units/ml) SC SCH ×2 (17:11→22:14)
[2024-09-20] MEDS: ATORVASTATIN 20 MG TAB PO SCH (22:00)
[2024-09-20] MEDS ORDERED: ATORVASTATIN 20 MG TAB PO SCH ×2 (22:00)
[2024-09-20] MEDS ORDERED: CARVEDILOL 3.125 MG TAB PO SCH (22:00)
[2024-09-20] MEDS: SITAGLIPTIN PO SCH (22:00)
[2024-09-20] MEDS: METFORMIN PO SCH (22:00)
[2024-09-21] VITALS (8 sets, daily range): BP systolic 111–162; BP diastolic 63–82; PULSE 68–77; RESP 18–20; TEMP 97.8–98.6; O2SAT 97–99
[2024-09-21] MEDS: Meloxicam 15 MG TABLET PO SCH (06:06)
[2024-09-21 06:40] LABS: Albumin 3.9 g/dL (3.2-4.8); Alkaline Phosphatase 53 U/L (46-116); Anion Gap 6 (5-15); Blood Urea Nitrogen 14 mg/dL (9-23); Calcium 9.5 mg/dL (8.7-10.4); Carbon Dioxide 24 mmol/L (20-31); Chloride 104 mmol/L (98-107); Potassium 4.4 mmol/L (3.5-5.1)
[2024-09-21 06:41] LABS: Alanine Aminotransferase < 9 U/L (7-40); Aspartate Aminotransferase 13 U/L (13-40); Glucose 144 mg/dL (74-106); Sodium 134 mmol/L (136-145); Total Protein 6.5 g/dL (5.7-8.2)
[2024-09-21 07:01] LABS: Basophils # (auto) 0 10 ^3/uL (0-0.2); Basophils % (auto) 0.7 % (0.0-2.0); Eosinophils # (auto) 0 10 ^3/uL (0-0.8); Eosinophils % (auto) 1.3 % (0.0-7.0); Hematocrit 29.7 % (41.0-53.0); Hemoglobin 10.2 g/dL (13.5-17.5); Lymphocytes # (auto) 1.1 10 ^3/uL (0.4-5.4); Lymphocytes % (auto) 36.2 % (10.0-50.0); Mean Corpuscular Hemoglobin 30.4 pg (28.0-32.0); Mean Corpuscular Hgb Conc. 34.4 g/dL (32.0-36.0); Mean Corpuscular Volume 88.2 fL (80.0-100.0); Monocytes # (auto) 0.5 10 ^3/uL (0-1.3); Monocytes % (auto) 16.2 % (0.0-12.0); Neutrophils # (auto) 1.4 10 ^3/uL (1.6-8.6); Neutrophils % (auto) 45.6 % (37.0-80.0); Nucleated Red Blood Cells % 0.3 %; Platelet Count (auto) 127 10^3/uL (140-450); Red Blood Cells 3.37 10^6/uL (4.5-5.90); White Blood Cell 3.2 10^3/uL (4.4-10.8)
--- NOTE | 2024-09-21 09:08 | DVHPN2 ---
Progress Note - Dictate Date Seen: Sep 21, 2024 Medical Necessity Reason Pt with a Central, PICC or Fol: No Subjective Pt presented with right groin hematoma with ecchymosis. Doppler consistent with pseudoaneurysms The patient is 64 years old, history of hypertension, hyperlipidemia, history of myocardial infarction in 1997, presented with inferior wall [place]. The patient underwent emergent angioplasty with stent placement of the proximal right coronary artery. There is strong family history for coronary artery disease. Grandmother had coronary artery disease. History of tobacco use, but discontinued smoking in 1997. History of diabetes. CURRENT MEDICATIONS: * Insulin. * Coreg. * Aspirin. * Rosuvastatin. He also has symptoms of sciatica. Mild kidney insufficiency, creatinine of 1.33 and the patient's potassium is also elevated at 5.0. He denies any cardiac arrest. No history of CVA. No history of TIA. No seizure disorder. No history of melena, hematochezia, hematemesis, hemoptysis. No hematuria. No history of bladder disease. No history of kidney disease. No history of any inflammatory bowel disease, diverticulitis or any history of irritable bowel syndrome. No lung disease such as COPD, emphysema or asthma. He has hyperlipidemia, however. Denies any history of rheumatologic disorders. vital signs Vital Sign Date Time Temp Pulse Resp B/P (MAP) Pulse Ox O2 Delivery O2 Flow Rate FiO2 09/21/24 08:51 98.4 75 20 157/68 (97) 99 98.4 09/20/24 20:39 Room Air* 0 21 Total Intake and Output 09/20/24 09/20/24 09/21/24 15:00 23:00 07:00 Intake Total 0 ml 725 ml 1000 ml Output Total 0 ml 1150 ml Balance 0 ml 725 ml -150 ml medications Current Medications Medications Dose Ordered Sig/Salena Route Start Time Stop Time Status Last Admin Dose Admin Morphine Sulfate 2 mg Q30M PRN IV 09/19/24 22:45 Nitroglycerin 0.4 mg Q5MINP PRN SL 09/19/24 22:45 Acetaminophen/ Hydrocodone Bitart 1 tab Q6HPRN PRN PO 09/19/24 22:45 Dextrose 50 ml UD PRN IV 09/19/24 23:30 Morphine Sulfate 2 mg Q6HPRN PRN IV 09/20/24 04:30 Diagnostic Test (Pha) 1 strip ACHS 09/20/24 17:00 09/21/24 07:23 1 STRIP Insulin Human Regular HS SC 09/20/24 22:00 09/20/24 22:14 6 UNITS Insulin Human Regular AC SC 09/20/24 17:00 09/21/24 06:08 2 UNITS Dextrose 50 ml UD PRN IV 09/20/24 15:45 Aspirin 81 mg DAILY PO 09/21/24 10:00 Carvedilol 6.25 mg BID PO 09/20/24 22:00 09/20/24 21:59 6.25 MG Patient Own Medication 1 tab DAILY PO 09/21/24 10:00 09/21/24 06:06 1 TAB Pioglitazone HCl 45 mg DAILY PO 09/21/24 10:00 Patient Own Medication 1 tab DAILY PO 09/21/24 10:00 Patient Own Medication 1 tab BID PO 09/20/24 22:00 Atorvastatin Calcium 40 mg HS PO 09/20/24 22:00 09/20/24 22:00 40 MG objective PHYSICAL EXAMINATION: VITAL SIGNS: Blood pressure is 148/70, pulse of 70, O2 saturation 98% on room air. HEENT: Pupils are reactive. Funduscopic exam is benign. Sclerae anicteric. Oral mucosa moist. Posterior pharynx without any exudate. No JVD appreciated. Carotid pulses are 2+ symmetrical, normal upstroke and contour. No cervical adenopathy, no supraclavicular adenopathy. PULMONARY: Clear to auscultation. CARDIOVASCULAR: Regular rate, without S3, without S4. PMI is not displaced. ABDOMEN: Soft, nontender, normal bowel sounds. SKIN: Unremarkable. EXTREMITIES: 2+ pulses. NEUROLOGIC: The patient is intact. DIAGNOSTIC DATA: EKG does not show any acute changes. laboratory and microbiology Laboratory Tests 09/21/24 05:04 Test 09/21/24 05:04 Range/Units Serum Glucose 144 H 74-106 mg/dL Problem List ANEMIA PSEUDOANEURYSM CAD S/P PTCA STENT Assessment/Plan TRANSFUSE TAMPONADE THE PSEUDOANEURYSM UNDER ULTRASOUND GUIDANCE AND THROMBIN SUCCESSFUL CLOSURE OF PSEUDOANEURYSM REPEAT DOPPLER EVALUATION S/P 2 UNITS OF PRBC HCT 29% BEDREST FOR NOW Plan discussed with: Patient, Son Critical Care Time(min): 35 CC Plasma Assessment Blood Product Administration S: [id number] ARUNASALAM,AGGIE MD Sep 21, 2024 09:08
[2024-09-21] MEDS: ASPirin-EC 81 mg tab PO SCH (10:00)
[2024-09-21] MEDS ORDERED: PATIENTS OWN MEDICATION (Rosuvastatin Calcium (Crestor) 1 TAB) PO SCH (10:00)
[2024-09-21 10:10] LABS: Urine Bacteria None Seen /hpf (None Seen)
[2024-09-21 10:33] LABS: Urine Blood Negative /uL (Negative); Urine Clarity Clear (Clear); Urine Color Colorless (Yellow); Urine Protein, UAD Negative (Negative); Urine Specific Gravity 1.007 (1.001-1.035); Urine Urobilinogen Normal (Negative); Urine WBC <1 /hpf (0 - 3); Urine pH 6.5 (5.0-9.0)
--- NOTE | 2024-09-21 10:55 | DVH ---
ULTRASOUND OF RIGHTLOWER EXTREMITY CLINICAL HISTORY: RE-EVAL PSEUDOANEURYSM RT GROIN TECHNIQUE: Focused ultrasound of the proximal right lower extremity soft tissues. . Comparison: None FINDINGS: There is a 1.7 x 1.4 x 1.3 cm contained vascular structure anterior to the right common femoral arter y. There is a neck which communicates with the right STITCHER AROUND. This is consistent with aneurysm. IMPRESSION: 1. 1.7 x 1.4 cm pseudoaneurysm anterior to the right common femoral artery. HS:Y
[2024-09-21] MEDS: PIOGLITAZONE HYDROCHLORIDE 30 MG TAB PO SCH (11:18)
[2024-09-21] MEDS: SEMAGLUTIDE 3 MG PO SCH (11:21)
--- NOTE | 2024-09-21 11:32 | DVH ---
Exam: US US GUIDANCE FOR NEEDLE PLACEME Clinical History: thrombin injection Comparison: None Technique: Targeted sonographic evaluation of the soft tissues of the right groin pseudoaneurysm was obtained u tilizing grayscale and color Doppler imaging. Findings/Impression: Right groin pseudoaneurysm treatment. Please refer to surgical report for detailed findings.
--- NOTE | 2024-09-21 15:23 | DVHPN2 ---
Progress Note Date Seen: Sep 21, 2024 Medical Necessity Reason Pt with a Central, PICC or Fol: No Subjective Patient reports: No new complaints Review of Systems: HEENT:Normal, CVS:Normal, RESPIRATORY:Normal, GI:Normal, :Normal, MSK:Normal, NEURO:Normal Objective vital signs Vital Sign Date Time Temp Pulse Resp B/P (MAP) Pulse Ox O2 Delivery O2 Flow Rate FiO2 09/21/24 12:29 97.8 72 20 162/72 (102) 97 97.8 09/20/24 20:39 Room Air* 0 21 Total Intake and Output 09/20/24 09/20/24 09/21/24 15:00 23:00 07:00 Intake Total 0 ml 725 ml 1000 ml Output Total 0 ml 1150 ml Balance 0 ml 725 ml -150 ml medications Current Medications Medications Dose Ordered Sig/Salena Route Start Time Stop Time Status Last Admin Dose Admin Morphine Sulfate 2 mg Q30M PRN IV 09/19/24 22:45 Nitroglycerin 0.4 mg Q5MINP PRN SL 09/19/24 22:45 Acetaminophen/ Hydrocodone Bitart 1 tab Q6HPRN PRN PO 09/19/24 22:45 Dextrose 50 ml UD PRN IV 09/19/24 23:30 Morphine Sulfate 2 mg Q6HPRN PRN IV 09/20/24 04:30 Diagnostic Test (Pha) 1 strip ACHS 09/20/24 17:00 09/21/24 11:20 1 STRIP Insulin Human Regular HS SC 09/20/24 22:00 09/20/24 22:14 6 UNITS Insulin Human Regular AC SC 09/20/24 17:00 09/21/24 06:08 2 UNITS Dextrose 50 ml UD PRN IV 09/20/24 15:45 Aspirin 81 mg DAILY PO 09/21/24 10:00 Carvedilol 6.25 mg BID PO 09/20/24 22:00 09/21/24 11:20 6.25 MG Patient Own Medication 1 tab DAILY PO 09/21/24 10:00 09/21/24 06:06 1 TAB Pioglitazone HCl 45 mg DAILY PO 09/21/24 10:00 09/21/24 11:18 45 MG Patient Own Medication 1 tab DAILY PO 09/21/24 10:00 09/21/24 11:21 1 TAB Patient Own Medication 1 tab BID PO 09/20/24 22:00 Atorvastatin Calcium 40 mg HS PO 09/20/24 22:00 09/20/24 22:00 40 MG Examination: GENERAL:Normal, HEENT:Normal, NECK:Normal, LUNGS:Normal, CVS:Normal, ABDOMEN:Normal, MSK:Normal, SKIN:Normal, NEURO:Normal, :Normal laboratory and microbiology Laboratory Tests 09/21/24 05:04 Test 09/21/24 05:04 Range/Units Serum Glucose 144 H 74-106 mg/dL Microbiology Date/Time Source Procedure Growth Status 09/20/24 21:25 Nose MRSA Screen - Final Complete Problem List/Assessment/Plan Problem List/Assessment/Plan #1 right groin hematoma with pseudoaneurysm: dw dr Rodríguez, repeat procedure in am #2 anemia s/p transfusion #3 cad s/p stent #4 dm: ssi #5 htn #6 hyperlipidemia advance care planning- full code- time spent 19 mins Plan discussed with: Patient, Son My Orders My Orders Orders - CLARA SHARIF MD Procedure Category Date Status Time Glucose Blood PHA 09/20/24 In Process (Accu-Chek Comfort 17:00 Insulin R (Human) PHA 09/20/24 In Process (Insulin R) 22:00 Insulin R (Human) PHA 09/20/24 In Process (Insulin R) 17:00 Dextrose 50% Syringe PHA 09/20/24 In Process 15:45 Mrsa Screen MAHESH 09/21/24 Logged 07:23 Right Lower Extremity US 09/21/24 Resulted Ultrasou Date of Service: Sep 21, 2024 Billing Provider: CLARA SHARIF MD Common Visit Codes: [id number] INP/OBS CARE(HIGH) CC Plasma Assessment Blood Product Administration S: 1220 CLARA SHARIF MD Sep 21, 2024 15:23
[2024-09-22 01:00] VITALS: BP 154/76; PULSE 73; RESP 19; TEMP 98; O2SAT 93
[2024-09-22 04:48] VITALS: BP 104/47; PULSE 94; RESP 17; TEMP 97.7; O2SAT 95
[2024-09-22 06:22] LABS: Basophils # (auto) 0 10 ^3/uL (0-0.2); Basophils % (auto) 0.7 % (0.0-2.0); Eosinophils # (auto) 0 10 ^3/uL (0-0.8); Eosinophils % (auto) 1.5 % (0.0-7.0); Hematocrit 30.5 % (41.0-53.0); Hemoglobin 10.4 g/dL (13.5-17.5); Lymphocytes % (auto) 34.5 % (10.0-50.0); Mean Corpuscular Hemoglobin 30.4 pg (28.0-32.0); Mean Corpuscular Hgb Conc. 34.1 g/dL (32.0-36.0); Monocytes # (auto) 0.5 10 ^3/uL (0-1.3); Monocytes % (auto) 15.9 % (0.0-12.0); Neutrophils # (auto) 1.4 10 ^3/uL (1.6-8.6); Neutrophils % (auto) 47.4 % (37.0-80.0); Nucleated Red Blood Cells % 0.3 %; Platelet Count (auto) 167 10^3/uL (140-450); Red Blood Cells 3.43 10^6/uL (4.5-5.90); Red Cell Distribution Width 16.5 % (11.8-14.3); White Blood Cell 2.9 10^3/uL (4.4-10.8)
[2024-09-22 06:29] LABS: Chloride 103 mmol/L (98-107); Potassium 4.2 mmol/L (3.5-5.1)
[2024-09-22 06:30] LABS: Anion Gap 7 (5-15); Calcium 9.7 mg/dL (8.7-10.4); Carbon Dioxide 25 mmol/L (20-31)
[2024-09-22 06:33] LABS: Sodium 135 mmol/L (136-145)
[2024-09-22 06:35] LABS: BUN/Creatinine Ratio 12.3 (10.0-20.0); Blood Urea Nitrogen 13 mg/dL (9-23)
[2024-09-22 06:40] LABS: Glucose 163 mg/dL (74-106)
[2024-09-22 08:00] VITALS: PULSE 72
[2024-09-22 08:36] VITALS: BP 140/71; PULSE 78; RESP 17; TEMP 98.2; O2SAT 100
[2024-09-22 12:44] VITALS: BP 113/74; PULSE 79; RESP 17; TEMP 98.4; O2SAT 97
[2024-09-22] MEDS ORDERED: POLYPOW59 PO (13:13)
[2024-09-22] MEDS ORDERED: DOCU-94 PO (13:13)
[2024-09-22] MEDS ORDERED: DIPH2CRE EX (13:26)
[2024-09-22] MEDS ORDERED: AUG875T PO (13:28)
--- NOTE | 2024-09-22 13:31 | DVHDS2 ---
Discharge Summary Date of Admission Sep 19, 2024 at 22:39 Date of Discharge: Sep 22, 2024 Labs/Diagnostic Data: Laboratory Results Test 09/22/24 12:08 09/22/24 05:49 09/21/24 10:00 09/21/24 05:04 POC Glucose 204 mg/dl (70-106) White Blood Count 2.9 10^3/uL (4.4-10.8) Red Blood Count 3.43 10^6/uL (4.5-5.90) Hemoglobin 10.4 g/dL (13.5-17.5) Hematocrit 30.5 % (41.0-53.0) Mean Corpuscular Volume 89.0 fL (80.0-100.0) Mean Corpuscular Hemoglobin 30.4 pg (28.0-32.0) Mean Corpuscular Hemoglobin Concent 34.1 g/dL (32.0-36.0) Red Cell Distribution Width 16.5 % (11.8-14.3) Platelet Count 167 10^3/uL (140-450) Mean Platelet Volume 7.3 fL (6.9-10.8) Neutrophils (%) (Auto) 47.4 % (37.0-80.0) Lymphocytes (%) (Auto) 34.5 % (10.0-50.0) Monocytes (%) (Auto) 15.9 % (0.0-12.0) Eosinophils (%) (Auto) 1.5 % (0.0-7.0) Basophils (%) (Auto) 0.7 % (0.0-2.0) Neutrophils # (Auto) 1.4 10 ^3/uL (1.6-8.6) Lymphocytes # (Auto) 1.0 10 ^3/uL (0.4-5.4) Monocytes # (Auto) 0.5 10 ^3/uL (0-1.3) Eosinophils # (Auto) 0 10 ^3/uL (0-0.8) Basophils # (Auto) 0 10 ^3/uL (0-0.2) Nucleated Red Blood Cells 0.3 % Sodium Level 135 mmol/L (136-145) Potassium Level 4.2 mmol/L (3.5-5.1) Chloride Level 103 mmol/L (98-107) Carbon Dioxide Level 25 mmol/L (20-31) Anion Gap 7 (5-15) Blood Urea Nitrogen 13 mg/dL (9-23) Creatinine 1.06 mg/dL (0.700-1.30) Glomerular Filtration Rate Calc 77 mL/min (>90) BUN/Creatinine Ratio 12.3 (10.0-20.0) Serum Glucose 163 mg/dL (74-106) Calcium Level 9.7 mg/dL (8.7-10.4) Urine Color Colorless (Yellow) Urine Clarity Clear (Clear) Urine pH 6.5 (5.0-9.0) Urine Specific Isabel 1.007 (1.001-1.035) Urine Protein Negative (Negative) Urine Ketones Negative (Negative) Urine Blood Negative /uL (Negative) Urine Nitrite Negative (Negative) Urine Bilirubin Negative (Negative) Urine Urobilinogen Normal mg/dL (Negative) Urine Leukocyte Esterase Negative /uL (Negative) Urine RBC 1 /hpf (0 - 3) Urine WBC <1 /hpf (0 - 3) Urine Squamous Epithelial Cells None seen /hpf (<5) Urine Bacteria None seen /hpf (None Seen) Urine Glucose Normal mg/dL (Normal) Total Bilirubin 1.0 mg/dL (0.2-1.0) Aspartate Amino Transferase (AST) 13 U/L (13-40) Alanine Aminotransferase (ALT) < 9 U/L (7-40) Alkaline Phosphatase 53 U/L (46-116) Total Protein 6.5 g/dL (5.7-8.2) Albumin 3.9 g/dL (3.2-4.8) Test 09/20/24 05:16 09/19/24 14:36 Reticulocyte Count (auto) 3.80 % (0.5-1.5) Haptoglobin 193 mg/dL (32-363) Hemoglobin A1c 6.5 % A1C (<5.7) Triglycerides Level 120 mg/dL (< 150) Cholesterol Level 77 mg/dL (< 200) LDL Cholesterol 36 mg/dL (< 100) HDL Cholesterol 22 mg/dL (40-59) Prothrombin Time 11.9 sec (9.3-11.8) Prothrombin Time INR 1.13 (0.9-1.15) Activated Partial Thromboplast Time 23.9 SEC (24.5-34.5) Other Laboratory Tests 09/22/24 05:49 Brief Hx & Hospital Course: HPI: Patient is a 64-year-old male with a past medical history of type 2 diabetes mellitus and hypertension came to the ED with a chief complaint of right groin and scrotal swelling. Patient underwent a left heart catheterization with stent on past with Dr. Rodríguez cardiology, following which he was discharged, but later, he started to feel mild discomfort in the right groin at the site of access. noticed that there was some black discoloration around the site which was slowly progressing down to the right side of the scrotum. Patient reported that his discomfort was increasing and in the morning prior to ED visit the pain got worse and the swelling with the scrotum got worse with complete black discoloration of the penis and the scrotum. Hospital course: patient with recent NICK insertion with femoral access. 6 day post op has swelling and pain in R groin and pubic/scrotal area. CT abd/pelvis unremarkable and limited due to motion. testicular u/s showing: Small bilateral hydroceles with scrotal wall edema and Incidental pseudoaneurysm right common femoral artery. this is confirmed with repeat right groin u/s (1.7 x 1.4 cm pseudoaneurysm anterior to the right common femoral artery). imaging and exam concern for pseudoaneursym as complication of the recent procedure. Hb low 6.7 (with associated reticulocytosis and high RDW), requiring 2pRBC, ABLA due to hematoma into R groin and scrotum. taken to OR for pseudoaneurysm closure and is s/p thrombin injection , and stable thereafter. Cardiology clears, VS stable.discharge plan as below. discharge diagnosis: Right femoral pseudoaneurysm s/p closure with thrombin injection; Scrotal hematoma, stable; CAD with recent s/p PTCA and NICK; Right groin hematoma; ABLA s/p transfusion; thrombocytopenia, resolved; Diabetes,; HTN; HLD; discharge plan - continue to take asa81 and crestor 20 as prescribed in past - augmentin bid x 7 days. - start plavix/clopidogrel on wednesday - go to/setup Dr Rodríguez appointment for coming wednesday09/26/24 - warm compresses on scrotum. ok to apply benadryl cream for scrotrum itch as needed, keep region dry otherwise - bowel regimen (miralax 1 week, docusate [id number]) to prevent straining - light activity, no straining - diet per history (cardiac, diabetic/low carb) - hold off pioglitazone until PCP review. advise PCP to stop pioglitazone due to concern of several documented sideeffects. - continue other home meds not mentioned above. return to ED if scrotal swelling worsens or other swelling/ecchymosis occur. Condition at Discharge: Fair Final Diagnosis/Problems List Right femoral pseudoaneurysm s/p closure with thrombin injection; Scrotal hematoma, stable; CAD with recent s/p PTCA and NICK; Right groin hematoma; ABLA s/p transfusion; thrombocytopenia, resolved; Diabetes,; HTN; HLD; Discharge Disposition: Home Discharge Instruct/Medications Diet: Consistent carbohydrate, Cardiac 2g Na,low cholest Activity: Light activity Follow Up/Referral: Dr Rodríguez Medications: as below in dc instructions Discharge Statement: "Patient was advised to return to the ER or call 911 if any headaches, dizziness, shortness of breath, chest pain, abdominal pain, bleeding, fevers, or worsening of medical condition. Patient was counseled about treatment plan, medications, possible side effects, patientverbalized understanding. All questions were answered to the best of my ability. This discharge took greater then 30 minutes in planning, reviewing documentation, counseling the patient, and discussing with other team members." ASSESSMENT ASSESSMENT Assessment Right femoral pseudoaneurysm s/p closure with thrombin injection; Scrotal hematoma, stable; CAD with recent s/p PTCA and NICK; Right groin hematoma; ABLA s/p transfusion; thrombocytopenia, resolved; Diabetes,; HTN; HLD; Date of Service: Sep 22, 2024 Billing Provider: RICHIE HEIN MD Common Visit Codes: 55913-CTV/OBS DISCH DAY >30min RICHIE HEIN MD Sep 22, 2024 13:31
[2024-09-22 16:33] VITALS: BP 139/65; PULSE 79; RESP 17; TEMP 98.1; O2SAT 97
== END 2024-09-22 17:00 | disposition home or self-care (01) | DRG 197 ==
LOC: ER 14:05 → EDBD 14:05 → OVERFLOW 22:39 → WEST WING 09-20 20:27 → TELE-WESTW 09-21 01:29
PROVIDERS: ATTEND Student in an Organized Health Care Education/Training Program
PROC: 3E053GC Introduction of Other Therapeutic Substance into Peripheral Artery, Percutaneous Approach (ICD-10-PCS; principal; 2024-09-20)
PROC: 30233N1 Transfusion of Nonautologous Red Blood Cells into Peripheral Vein, Percutaneous Approach (ICD-10-PCS; 2024-09-20)
DX: I72.4 Aneurysm of artery of lower extremity (principal); D69.6 Thrombocytopenia, unspecified; D62 Acute posthemorrhagic anemia; I50.22 Chronic systolic (congestive) heart failure; I11.0 Hypertensive heart disease with heart failure; S30.1XXA Contusion of abdominal wall, initial encounter; E11.65 Type 2 diabetes mellitus with hyperglycemia; E78.5 Hyperlipidemia, unspecified; N50.819 Testicular pain, unspecified; I25.10 Atherosclerotic heart disease of native coronary artery without angina pectoris; X58.XXXA Exposure to other specified factors, initial encounter; N43.3 Hydrocele, unspecified; Z98.61 Coronary angioplasty status; I25.2 Old myocardial infarction; Z82.49 Family history of ischemic heart disease and other diseases of the circulatory system; Z87.891 Personal history of nicotine dependence; Y93.89 Activity, other specified; Y92.89 Other specified places as the place of occurrence of the external cause; Y99.8 Other external cause status
CPT/HCPCS: 36415; 74176; 76870; 76881; 76942; 80048; 80053; 80061; 81001; 82962; 83010; 83036; 85014; 85018; 85025; 85045; 85610; 85730; 86850; 86900; 86901; 86920; 87081; 93926; 99152; 99291; G0378; J1815

== ENCOUNTER → 2024-10-09 | Outpatient (CLI) | payer MEDICAID ==
[~2024-10-09] MED LIST changes: +AUG875T PO; +DIPH2CRE EX; +DOCU-94 PO; +POLYPOW59 PO; -POM PO
== END | disposition home or self-care (01) ==
LOC: Rad HDHVI 13:52
PROVIDERS: ATTEND Internal Medicine Cardiovascular Disease
DX: R10.30 Lower abdominal pain, unspecified (principal)
CPT/HCPCS: 93925